=== PATIENT | male | born 1965 | race Caucasian/White ===

== ENCOUNTER 2016-11-25 09:05 | Emergency (ER) | payer BC ==
[~2016-11-25] VITALS: Ht 177.8 cm; Wt 100.0 kg
[2016-11-25] MEDS ORDERED: TOBRAMYCIN0.3 % OD (09:27)
[2016-11-25] MEDS ORDERED: TYLENOL # 31 TA1 PO (09:35)
[2016-11-25 09:40] VITALS: BP 149/84
== END 2016-11-25 09:40 | disposition home or self-care (01) | DRG 125 ==
LOC: ED 09:05
DX: S05.01XA Injury of conjunctiva and corneal abrasion without foreign body, right eye, initial encounter (principal); W54.1XXA Struck by dog, initial encounter; Y93.89 Activity, other specified; Y92.009 Unspecified place in unspecified non-institutional (private) residence as the place of occurrence of the external cause